=== PATIENT | female | born 1975 | race Caucasian/White ===

== ENCOUNTER → 2017-07-20 | Outpatient (CLI) | payer OTHER ==
[~2017-07-20] MED LIST: CALCIUM 600600 M2 PO; CYTOXAN; LEVAQUIN 750MG750 M1 PO; MULTIVITAMIN1 CTB PO; NORCO 325 MG-7.1 TAB PO; PRENATAL1 TA1 PO; PROBIOTICA100 Milli1 PO; TAXOTERE20 MG/ML
== END ==
LOC: MC.RAD 08:40
DX: Z12.31 Encounter for screening mammogram for malignant neoplasm of breast (principal)

== ENCOUNTER 2017-12-24 11:15 | Outpatient (RCR) | payer OTHER | END 2018-01-10 | disposition home or self-care (01) | LOC: WSPT | DX: M25.511 Pain in right shoulder (principal) ==

== ENCOUNTER → 2018-08-06 | Outpatient (CLI) | payer OTHER | LOC: MC.RAD 07:33 | DX: Z12.31 Encounter for screening mammogram for malignant neoplasm of breast (principal); Z98.82 Breast implant status ==

== ENCOUNTER → 2019-09-01 | Outpatient (CLI) | payer OTHER | LOC: MC.RAD 09:01 | DX: Z12.31 Encounter for screening mammogram for malignant neoplasm of breast (principal); Z98.82 Breast implant status; Z98.890 Other specified postprocedural states; Z85.3 Personal history of malignant neoplasm of breast ==

== ENCOUNTER 2020-08-02 07:30 | Outpatient (RCR) | payer OTHER | END 2020-09-12 09:49 | disposition home or self-care (01) | LOC: WSC 07:30 | DX: M54.5 Low back pain (principal) ==

== ENCOUNTER → 2020-09-03 | Outpatient (CLI) | payer OTHER | LOC: MC.RAD 07:40 | DX: Z12.31 Encounter for screening mammogram for malignant neoplasm of breast (principal); Z98.890 Other specified postprocedural states; Z85.3 Personal history of malignant neoplasm of breast; Z98.82 Breast implant status ==

== ENCOUNTER 2020-12-13 09:45 | Outpatient (RCR) | payer OTHER | END 2021-02-04 | disposition still patient (30) | LOC: WSPT | DX: M54.5 Low back pain (principal); M25.512 Pain in left shoulder ==

== ENCOUNTER → 2021-11-07 | Outpatient (CLI) | payer OTHER | LOC: MC.RAD 08:49 | DX: Z12.31 Encounter for screening mammogram for malignant neoplasm of breast (principal); Z85.3 Personal history of malignant neoplasm of breast; Z98.890 Other specified postprocedural states ==